=== PATIENT | female | born 1940 | race American Indian/Alaskan Native ===

== ENCOUNTER 2017-07-10 12:20 | Outpatient (CLI) | payer MEDICARE ==
--- NOTE | 2017-07-10 21:52 | XRay Report ---
FINAL REPORT PROCEDURE: XR KNEE BILAT 4+V TECHNIQUE: Bilateral knee radiographs, standing AP view. HISTORY: BILATERAL KNEE PAIN COMPARISON: No prior studies are available for comparison. FINDINGS: Fracture (s) and/or Dislocation(s): None . Joint space(s): Moderate to severe degree narrowing is noted involving bilateral tibiofemoral compartments with osteophyte formation. Mild degree joint effusion is noted bilaterally. Soft tissues: Normal. Bone mineralization: Normal. Foreign bodies: None. IMPRESSION: No acute fracture. Moderate degree bilateral osteoarthritis with mild degree joint effusion.
== END 2017-07-10 12:21 | disposition home or self-care (01) ==
LOC: SPVIMAG 12:20
PROVIDERS: ATTEND Orthopaedic Surgery Sports Medicine
DX: M17.0 Bilateral primary osteoarthritis of knee (principal)